=== PATIENT | male | born 1955 | race Caucasian/White ===

== ENCOUNTER 2023-08-07 20:33 | Emergency (ER) | payer OTHER ==
[~2023-08-07] VITALS: Ht 175.3 cm; Wt 100.7 kg
[2023-08-07 20:51] VITALS: BP_SYST 135; PULSE 92; RESP 20; TEMP 97.7; O2SAT 95
[2023-08-07 22:38] VITALS: BP_SYST 135; PULSE 92; RESP 20; TEMP 97.7; O2SAT 95
== END 2023-08-07 22:38 | disposition home or self-care (01) ==
LOC: SED 20:33
DX: S00.03XA Contusion of scalp, initial encounter (principal); Z79.899 Other long term (current) drug therapy; W19.XXXA Unspecified fall, initial encounter; Y93.89 Activity, other specified; Y92.89 Other specified places as the place of occurrence of the external cause; Y99.8 Other external cause status
CPT/HCPCS: 70450-TC; 76376; 99284